=== PATIENT | female | born 1970 | race Caucasian/White ===

== ENCOUNTER 2017-04-23 20:33 | Inpatient (IN) | payer OTHER, MEDICAID ==
[~2017-04-23] VITALS: Ht 154.9 cm; Wt 57.6 kg
[2017-04-23] MEDS ORDERED: ASPIRIN 81MG TABLET PO ONE (22:45)
[2017-04-23 23:15] LABS: *AMPHETAMINES SCREEN URINE NEGATIVE (NEGATIVE); *BARBITURATES SCREEN URINE NEGATIVE (NEGATIVE); *COCAINE SCREEN URINE NEGATIVE (NEGATIVE); CANNABINOID URINE SCREEN NEGATIVE (NEGATIVE); METHADONE URINE SCREEN NEGATIVE (NEGATIVE); OPIATES URINE SCREEN NEGATIVE (NEGATIVE); PHENCYCLIDINE URINE SCREEN NEGATIVE (NEGATIVE)
[2017-04-23 23:18] LABS: *BENZODIAZEPINES SCREEN URINE PRESUMTIVE POSITIVE (NEGATIVE)
[2017-04-23 23:20] LABS: BASOPHILS % 0.8 % (0.0-2.0); EOSINOPHILS % 1.2 % (0.0-5.0); HEMATOCRIT. 38.6 % (36.0-48.0); HEMOGLOBIN. 13.3 g/dL (12.0-16.0); LYMPHOCYTES % 15.3 % (20.0-50.0); MEAN CORPUSCULAR HEMOGLOBIN 30.8 pg (28.0-32.0); MEAN CORPUSCULAR VOLUME 89.7 fL (81.0-99.0); MEAN PLATELET VOLUME 8.8 fl (7.4-10.4); MONOCYTES % 5.5 % (2.0-8.0); NEUTROPHILS % 77.2 % (40.0-76.0); PLATELET 288 x1000/uL (130-400); RED CELL DISTRIBUTION WIDTH 13.3 % (11.6-14.6)
[2017-04-23 23:29] LABS: D-DIMER 0.19 mg/L FEU (<0.50); INR 1.1; PROTHROMBIN TIME 11.6 sec (9.4-11.6)
[2017-04-23 23:39] LABS: CARBON DIOXIDE 32 mEq/L (21-32); CHLORIDE 106 mEq/L (98-107); ETHANOL BLOOD < 10 mg/dL; HCG SCREEN NEGATIVE; TROPONIN I < 0.02 ng/mL (0.00-0.04)
[2017-04-24] VITALS (7 sets, daily range): BP systolic 93–110; BP diastolic 56–69
[2017-04-24] MEDS ORDERED: ENOXAPARIN 40MG/0.4ML SYR SUBCUT SCH (04:15)
[2017-04-24] MEDS ORDERED: NITROGLYCERIN 0.4MG TABLET SL SL PRN (04:15)
[2017-04-24] MEDS ORDERED: METO50TA5 PO (04:18)
[2017-04-24] MEDS ORDERED: SERT50TA PO (04:19)
[2017-04-24] MEDS ORDERED: ATOR10TA PO (04:19)
[2017-04-24] MEDS ORDERED: DIAZ10TA4 PO (04:19)
[2017-04-24] MEDS ORDERED: DIAZEPAM 5 MG TABLET PO PRN (04:30)
[2017-04-24] MEDS: ASPIRIN 81MG TABLET PO SCH (08:33)
[2017-04-24] MEDS: SERTRALINE HCL 50MG TABLET PO SCH (08:33)
[2017-04-24] MEDS: METOPROLOL TARTRATE 50MG TABLET PO SCH ×2 (08:34→20:15)
[2017-04-24] MEDS: ENOXAPARIN 40MG/0.4ML SYR SUBCUT SCH (08:35)
[2017-04-24 09:09] LABS: BASOPHILS % 1.2 % (0.0-2.0); EOSINOPHILS % 1.9 % (0.0-5.0); HEMOGLOBIN. 13.6 g/dL (12.0-16.0); LYMPHOCYTES % 18.8 % (20.0-50.0); MEAN CORPUSCULAR HEMOGLOBIN 30.6 pg (28.0-32.0); MEAN CORPUSCULAR VOLUME 90.2 fL (81.0-99.0); MEAN PLATELET VOLUME 9.2 fl (7.4-10.4); MONOCYTES % 7.1 % (2.0-8.0); PLATELET 278 x1000/uL (130-400); RED BLOOD CELL COUNT 4.44 mill/uL (4.2-5.4); RED CELL DISTRIBUTION WIDTH 13.7 % (11.6-14.6)
[2017-04-24 09:48] LABS: CARBON DIOXIDE 28 mEq/L (21-32); CHLORIDE 108 mEq/L (98-107); CREATINE KINASE 120 IU/L (26-192); HDL CHOLESTEROL 44 mg/dL (40-59); LDL CHOLESTEROL 105 mg/dL (5-100); TROPONIN I < 0.02 ng/mL (0.00-0.04)
[2017-04-24 09:54] LABS: CREATINE KINASE MB FRACTION 1.2 ng/mL (0.5-3.6)
[2017-04-24] MEDS: ACETAMINOPHEN 325MG TABLET PO PRN ×2 (10:21→20:14)
[2017-04-24] MEDS: SODIUM CHL 0.45% + KCL 20MEQ/L 1,000 ML IV SCH ×2 (10:21→20:14)
[2017-04-24 17:10] LABS: CREATINE KINASE 104 IU/L (26-192); CREATINE KINASE MB FRACTION 0.7 ng/mL (0.5-3.6); TROPONIN I < 0.02 ng/mL (0.00-0.04)
[2017-04-24] MEDS: ALPRAZOLAM 0.25 MG TABLET PO SCH (20:15)
[2017-04-24] MEDS ORDERED: ATORVASTATIN CALCIUM 10MG TABLET PO SCH (21:00)
[2017-04-24 23:17] LABS: CREATINE KINASE 87 IU/L (26-192)
[2017-04-25] VITALS: BP 92/49
[2017-04-25 04:00] VITALS: BP 90/45
[2017-04-25] MEDS: SODIUM CHL 0.45% + KCL 20MEQ/L 1,000 ML IV SCH (05:08)
[2017-04-25] MEDS: ALPRAZOLAM 0.25 MG TABLET PO SCH (05:08)
[2017-04-25 06:58] LABS: BASOPHILS % 0.9 % (0.0-2.0); EOSINOPHILS % 2.8 % (0.0-5.0); HEMOGLOBIN. 12.5 g/dL (12.0-16.0); LYMPHOCYTES % 18.9 % (20.0-50.0); MEAN CORPUSCULAR HEMOGLOBIN 30.7 pg (28.0-32.0); MEAN CORPUSCULAR VOLUME 90.5 fL (81.0-99.0); MEAN PLATELET VOLUME 9.3 fl (7.4-10.4); MONOCYTES % 5.1 % (2.0-8.0); NEUTROPHILS % 72.3 % (40.0-76.0); PLATELET 245 x1000/uL (130-400); RED BLOOD CELL COUNT 4.09 mill/uL (4.2-5.4); RED CELL DISTRIBUTION WIDTH 13.5 % (11.6-14.6)
[2017-04-25] MEDS ORDERED: DIAZEPAM 5 MG TABLET PO PRN (07:45)
[2017-04-25 08:00] VITALS: BP 115/83
[2017-04-25 08:14] LABS: CARBON DIOXIDE 25 mEq/L (21-32); CHLORIDE 110 mEq/L (98-107); HDL CHOLESTEROL 33 mg/dL (40-59); LDL CHOLESTEROL 83 mg/dL (5-100)
[2017-04-25 08:57] VITALS: BP 115/100
[2017-04-25] MEDS: ASPIRIN 81MG TABLET PO SCH (09:21)
[2017-04-25] MEDS: SERTRALINE HCL 50MG TABLET PO SCH (09:21)
[2017-04-25] MEDS: ENOXAPARIN 40MG/0.4ML SYR SUBCUT SCH (09:22)
[2017-04-25] MEDS: METOPROLOL TARTRATE 50MG TABLET PO SCH (09:22)
[2017-04-25] MEDS ORDERED: ALPRAZOLAM 0.25 MG TABLET PO SCH (14:00)
== END 2017-04-25 09:30 | disposition home or self-care (01) | DRG 310 ==
LOC: ER 20:41 → 7WST 23:04 → ENRESERV 04-24 00:18
PROVIDERS: ADMIT Internal Medicine Geriatric Medicine; ATTEND Internal Medicine Geriatric Medicine
DX: I47.1 Supraventricular tachycardia (principal); E11.65 Type 2 diabetes mellitus with hyperglycemia; F41.1 Generalized anxiety disorder; E78.00 Pure hypercholesterolemia, unspecified; I45.10 Unspecified right bundle-branch block; I10 Essential (primary) hypertension; Z82.49 Family history of ischemic heart disease and other diseases of the circulatory system
CPT/HCPCS: 36415; 71010; 80048; 80053; 80061; 80305; 82550; 82553; 83690; 83735; 83880; 84443; 84484; 84703; 85025; 85379; 85610; 93005; 93306; 97161; G0482; J1650; J3480